=== PATIENT | female | born 1990 | race Two or more races ===

== ENCOUNTER 2023-11-12 20:51 | Emergency (ER) | payer MEDICAID, OTHER ==
[~2023-11-12] VITALS: Ht 157.5 cm; Wt 59.4 kg
[2023-11-12 23:42] VITALS: BP 102/55; PULSE 69; RESP 17; TEMP 98.1; O2SAT 100
[2023-11-12] MEDS: ACETAMINOPHEN 325 MG TAB PO ONE (23:42)
== END 2023-11-12 23:42 | disposition home or self-care (01) ==
LOC: ER 20:51
DX: O9A.212 Injury, poisoning and certain other consequences of external causes complicating pregnancy, second trimester (principal); M79.602 Pain in left arm; M54.6 Pain in thoracic spine; Z3A.22 22 weeks gestation of pregnancy; Z86.2 Personal history of diseases of the blood and blood-forming organs and certain disorders involving the immune mechanism; W01.0XXA Fall on same level from slipping, tripping and stumbling without subsequent striking against object, initial encounter; Y93.89 Activity, other specified; Y92.89 Other specified places as the place of occurrence of the external cause; Y99.8 Other external cause status